=== PATIENT | male | born 1950 | race Caucasian/White ===

== ENCOUNTER → 2018-08-21 | Outpatient (CLI) | payer OTHER ==
[~2018-08-21] MED LIST: ACTOS 15MG TAB15 MG PO; AMLOPIDINE PO; CADUET 10 MG-401 TAB PO; FORTAMET1000 MG PO; GLYBURIDE MICRON3 MG PO; ISOSORBIDE MONO30 M1 PO; KLOR-CON 1010 MEQ PO; LASIX 40MG TABL40 MG PO; LISINOPRIL PO; PRAVACHOL 20MG20 MG PO; TOPROL XL50 MG PO
[2018-08-21 13:33] LABS: HEMOGLOBIN 13.8 g/dl (13.5-18.0); MEAN CELL VOLUME 96 fl (80.0-100.0); MEAN CORPUSCULAR HEMOGLOBIN 32 pg (27.0-31.0); MEAN CORPUSCULAR HGB CONC 34 g/dl (33.0-37.0); MEAN PLATELET VOLUME 11.9 fl (7.4-10.4); PLATELET COUNT 84 K/mm3 (130-400); RED BLOOD COUNT 4.26 M/mm3 (4.20-5.60); REDCELL DISTRIBUTION WIDTH-CV 14.2 % (11.5-14.5)
[2018-08-21 13:45] LABS: CALCIUM 9.5 mg/dL (8.4-10.2); CREATININE, serum 0.7 (0.66-1.25); POTASSIUM 4.3 mmol/L (3.4-5.0)
== END ==
LOC: COL.LAB 13:11
PROVIDERS: Internal Medicine Interventional Cardiology
DX: I70.1 Atherosclerosis of renal artery (principal)